=== PATIENT | female | born 1990 | race Hispanic/Latino ===

== ENCOUNTER 2019-04-02 10:06 | Emergency (ER) | payer MEDICAID, OTHER ==
[~2019-04-02 10:06] MED LIST: PNV1TABL17 PO
== END 2019-04-02 10:57 | disposition home or self-care (01) ==
LOC: EDH 10:06
DX: S20.312A Abrasion of left front wall of thorax, initial encounter (principal); V49.49XA Driver injured in collision with other motor vehicles in traffic accident, initial encounter; Y93.89 Activity, other specified; Y92.89 Other specified places as the place of occurrence of the external cause; Y99.8 Other external cause status